=== PATIENT | female | born 1985 | race African-American/Black ===

== ENCOUNTER 2016-12-05 13:09 | Emergency (ER) | payer MEDICAID ==
[~2016-12-05] VITALS: Ht 162.6 cm; Wt 77.0 kg
[2016-12-05 14:45] LABS: CLARITY URINE TURBID (CLEAR); COLOR URINE YELLOW (YELLOW); GLUCOSE URINE NEGATIVE (NEGATIVE); KETONES URINE NEGATIVE (NEGATIVE); LEUKOCYTE ESTERASE URINE 3+ (NEGATIVE); NITRITE URINE NEGATIVE (NEGATIVE); OCCULT BLOOD URINE 2+ (NEGATIVE); PH URINE 6.5 (4.5-8.0); PROTEIN URINE 2+ (NEGATIVE); SPECIFIC GRAVITY URINE 1.012 (1.005-1.030)
[2016-12-05 20:50] VITALS: BP 126/78
== END 2016-12-05 21:09 | disposition home or self-care (01) ==
LOC: ER 13:09
DX: N39.0 Urinary tract infection, site not specified (principal); R10.9 Unspecified abdominal pain
CPT/HCPCS: 81001; 81025; 99283; Z7610

== ENCOUNTER 2019-02-15 18:50 | Emergency (ER) | payer MEDICAID ==
[~2019-02-15] VITALS: Ht 160 cm; Wt 77.0 kg
[2019-02-16 00:05] VITALS: BP 127/76
[2019-02-16] MEDS ORDERED: ASPIRIN 81MG TABLET PO ONE (01:30)
[2019-02-16] MEDS ORDERED: MAGNESIUM/ALUMINUM HYDROXIDE/SIMETHICONE 30ML UDC PO ONE (01:30)
[2019-02-16] MEDS ORDERED: VISCOUS LIDOCAINE 2% 15 ML UDC PO ONE (01:30)
== END 2019-02-16 00:55 | disposition left against medical advice (07) ==
LOC: ER 18:50
DX: R07.89 Other chest pain (principal); Z53.21 Procedure and treatment not carried out due to patient leaving prior to being seen by health care provider
CPT/HCPCS: 93005